=== PATIENT | female | born 1975 | race Caucasian/White ===

== ENCOUNTER 2017-05-23 07:25 | Emergency (ER) | payer OTHER ==
[~2017-05-23] VITALS: Ht 157.5 cm; Wt 76.7 kg
[~2017-05-23 07:25] MED LIST: BRINTELLIX20 MG PO; CITRATE OF MAG296 ML PO; DIAZEPAM5 MG PO; FLEXERIL10 MG PO; FLOMAX0.4 MG PO; LIDODERM 5% P1 PATCH TD; LORAZEPAM0.5 MG PO; MEDROL DOSEPAK4 MG PO; MOTRIN600 MG PO; NAPROXEN500 MG PO; OLANZAPINE10 MG PO; PREDNISONE10 MG PO; PREDNISONE20 MG PO; SUMATRIPTAN SU100 MG PO; TIZANIDINE HCL4 MG PO; TOPIRAMATE50 MG PO; TRAZODONE HCL50 MG PO; VALIUM5 MG PO; VICODIN 5-3001 EACH PO; VICODIN,LORT1 TABLET PO; VIGAMOX 0.60 DROP/3 RIGHT EYE; ZOLPIDEM TARTRAT5 MG
[2017-05-23 08:28] LABS: BASOPHIL COUNT 0.1 K/uL (0-0.1); EOSINOPHIL (%) 0.5 % (0-5); EOSINOPHIL COUNT 0.1 K/uL (0-0.3); HEMATOCRIT 39.6 % (36.0-46.0); IMMATURE GRANULOCYTE (%) 0.3 % (0.0-0.7); LYMPHOCYTE COUNT 3.2 K/uL (1.0-2.8); MCH 29.5 PG (29.0-34.0); MCHC 33.3 G/DL (30.0-36.0); MCV 88.4 FL (83-99); MEAN PLAT.VOLUME 9.7 uM^3 (9.5-12.4); MONOCYTE (%) 6.1 % (3-12); MONOCYTE COUNT 0.7 K/uL (0-0.8); NEUTROPHIL (%) 63.7 % (45-76); PLATELET COUNT 312 K/uL (156-360); RBC DIS.WIDTH-CV 12.4 % (11.8-14.6); RBC DIS.WIDTH-SD 39.8 % (39-53); RED BLOOD COUNT 4.48 M/uL (3.80-5.20)
[2017-05-23 08:47] LABS: ADD MIUA? NO; BILIRUBIN NEGATIVE; BLOOD NEGATIVE; COLOR STRAW ((YELLOW)); GLUCOSE (STRIP) NEGATIVE; KETONES NEGATIVE; LEUKOCYTES NEGATIVE; NITRITE NEGATIVE; PROTEIN (STRIP) NEGATIVE; SPECIFIC GRAVITY 1.006 (1.000-1.030); UROBILINOGEN 0.2 MG/DL (0.2-1.0)
[2017-05-23 08:58] LABS: CHLORIDE 110 mEq/L (99-109); POTASSIUM 2.9 mEq/L (3.7-5.4); SODIUM 139 mEq/L (136-147)
[2017-05-23 08:59] LABS: GLUCOSE 104 mg/dL (70-99)
[2017-05-23 09:00] LABS: ANION GAP 6 MEQ/L (2-14)
[2017-05-23 09:03] LABS: GFR ESTIMATE (CALCULATED) > 59 mL/min/
[2017-05-23 09:04] LABS: UREA NITROGEN (BUN) 12 mg/dL (9-23)
[2017-05-23 09:11] LABS: QUANTITATIVE HCG < 4.0 MIU/ML
[2017-05-23 11:31] VITALS: BP 124/89
== END 2017-05-23 12:37 | disposition left against medical advice (07) ==
LOC: EME 07:25
PROVIDERS: Physician Assistant
DX: R42 Dizziness and giddiness (principal); H53.8 Other visual disturbances
CPT/HCPCS: 70450; 80048; 81003; 84702; 85025; 99281; 99283

== ENCOUNTER 2017-09-26 17:09 | Emergency (ER) | payer OTHER ==
[~2017-09-26] VITALS: Ht 162.6 cm; Wt 77.3 kg
[2017-09-26 17:56] VITALS: BP 114/82
== END 2017-09-26 18:17 | disposition home or self-care (01) ==
LOC: EME 17:09
DX: M54.5 Low back pain (principal); M54.2 Cervicalgia; V49.50XA Passenger injured in collision with unspecified motor vehicles in traffic accident, initial encounter; Y92.410 Unspecified street and highway as the place of occurrence of the external cause
CPT/HCPCS: 99281; 99283; J3010